=== PATIENT | female | born 1955 | race Caucasian/White ===

== ENCOUNTER → 2017-08-24 | Outpatient (CLI) | payer OTHER | LOC: BMCIMAGING 14:30 | PROVIDERS: ATTEND Internal Medicine | DX: Z12.31 Encounter for screening mammogram for malignant neoplasm of breast (principal) ==

== ENCOUNTER → 2017-08-30 | Outpatient (CLI) | payer OTHER | LOC: BMCIMAGING 10:20 | PROVIDERS: ATTEND Internal Medicine | DX: R92.8 Other abnormal and inconclusive findings on diagnostic imaging of breast (principal) ==